=== PATIENT | male | born 1940 | race Caucasian/White ===

== ENCOUNTER → 2020-10-15 | Outpatient (CLI) | payer MEDICARE | LOC: CT 08:11 | DX: D63.8 Anemia in other chronic diseases classified elsewhere (principal); D69.59 Other secondary thrombocytopenia; N32.89 Other specified disorders of bladder | CPT/HCPCS: 36415; 82565; Q9967 ==

== ENCOUNTER → 2021-01-12 | Outpatient (CLI) | payer MEDICARE | LOC: CT 08:40 | DX: C88.0 Waldenstrom macroglobulinemia (principal); R93.49 Abnormal radiologic findings on diagnostic imaging of other urinary organs; R31.9 Hematuria, unspecified; D51.9 Vitamin B12 deficiency anemia, unspecified; K44.9 Diaphragmatic hernia without obstruction or gangrene; I25.10 Atherosclerotic heart disease of native coronary artery without angina pectoris | CPT/HCPCS: 36415; 71260; 82565; 93005; Q9967 ==

== ENCOUNTER → 2021-09-28 | Outpatient (CLI) | payer MEDICARE | LOC: HEART 5 10:44 | DX: I48.91 Unspecified atrial fibrillation (principal); I27.20 Pulmonary hypertension, unspecified; I08.1 Rheumatic disorders of both mitral and tricuspid valves | CPT/HCPCS: 93306 ==